=== PATIENT | male | born 1985 | race African-American/Black ===

== ENCOUNTER 2016-06-23 13:02 | Emergency (ER) | payer MEDICAID, OTHER ==
[~2016-06-23 13:02] MED LIST: AMBI10TA; CELE20TA; CELE20TA PO; CELE40TA PO; CITA40TA4 PO; DEPA1TAB3 PO; DEPA500T2 PO; DIVA500T9 PO; HYDR-3713 PO; Inderal PO; LAMI25TA PO; LAMO50TA PO; MAG-OX PO; METH-107 PO; MOTR200T44 PO; PROP1TAB29 PO; RISP2TAB30 PO; TRAZ100T4 PO; TRAZ50TA4 PO; ZOLO100T; ZOLO50TA; ZYRT10CA PO
[2016-06-23] MEDS ORDERED: KETOROLAC 30 MG/ML VIAL (J1885) As Ordered ONE (13:53)
--- NOTE | 2016-06-23 16:06 | EDDOCDS ---
Nurse's Notes [facility] Name: Jonh Napier Age: 30 yrs Sex: Male : 1985 Arrival Date: 06/23/2016 Time: 13:02 Bed PR1 / 25 Private MD: [facility] [place] Diagnosis: Contusion of right hand Presentation: 06/23 13:13 Presenting complaint: Patient states: Punched a wall approximately 2 hours ago. Having jo3 pain to right hand. Adult Sepsis Screening: The patient does not have new or worsening altered mentation. Patient's respiratory rate is less than 22. Systolic blood pressure is greater than 100. Patient has a qSOFA score of 0- Negative Sepsis Screen. Suicide/Homicide risk assessment- the patient denies having any suicidal and/or homicidal ideations and does not present with any other emotional, behavioral or mental health complaints. Status: Patient is not a director service or dependent. Transition of care: patient was not received from another setting of care. 13:13 Acuity: ALLEN Level 4 jo3 13:13 Method Of Arrival: Walkin/Carried/Asstd jo3 Triage Assessment: 13:15 General: Appears in no apparent distress, Behavior is appropriate for age, cooperative. jo3 Pain: Pain currently is 6 out of 10 on a pain scale. HIV screening NA for this visit Offered previously. Neurological: No deficits noted. Derm: Skin is pink, warm & dry. Musculoskeletal: swelling tro dorsal aspect of right hand. Historical: - Allergies: PENICILLINS (Wheezing); - Home Meds: 1. Celexa 40 mg Oral tab 1 tab once daily 2. Depakote ER 500 mg Oral Tb24 1 tab three times a day 3. lamotrigine 40 mg Oral 1 tab once daily 4. unk muscle relaxer - PMHx: Anxiety Disorder; Bipolar disorder; Depression; PTSD; - PSHx: Hernia repair; - Social history: Smoking status: Patient states former smoker of tobacco. No barriers to communication noted, The patient speaks fluent Korean, Speaks appropriately for age. - Family history: Not pertinent. - : The pt / caregiver states he / she is not on anticoagulants. Home medication list is obtained from the patient. - Exposure Risk Screening:: None identified. Screenin:03 Screening information is obtained from the patient. Fall risk: No risks identified. pml Assistance ADL's: requires no assistance with activities of daily living. Abuse/DV Screen: The patient / caregiver reports he/she is: not in a situation that causes fear, pain or injury. Nutritional screening: No deficits noted. Advance Directives: Currently, there is no health care proxy. home support is adequate. Assessment: 13:56 General: Appears in no apparent distress, Behavior is appropriate for age, cooperative. pml Pain: Location: right hand Pain currently is 6 out of 10 on a pain scale. Neurological: Level of Consciousness is awake, alert, Oriented to person, place, time. Cardiovascular: Capillary refill < 3 seconds. Respiratory: Airway is patent Respiratory effort is even, unlabored. GI: Abdomen is non- distended. Derm: Skin is normal. Musculoskeletal: Circulation, motion, and sensation intact Capillary refill < 3 seconds Swelling present in dorsal aspect of proximal phalanx of right middle finger, dorsal aspect of proximal phalanx of right ring finger and dorsum of right hand. 16:03 General: Appears in no apparent distress, Behavior is appropriate for age, cooperative. pml Pain: Location: right hand Pain currently is 3 out of 10 on a pain scale. Neurological: Level of Consciousness is awake, alert, Oriented to person, place, time. Cardiovascular: Capillary refill < 3 seconds. Respiratory: Airway is patent Respiratory effort is even, unlabored. Derm: Skin is normal. Vital Signs: 13:04 BP 145 / 108; Pulse 83; Resp 18 S; Temp 99.7(O); Pulse Ox 98% on R/A; Weight 92.99 kg gr2 (R); Height 5 ft. 9 in. (175.26 cm) (R); Pain 7/10; 14:30 Pain 3/10; pml 15:51 BP 146 / 90; Pulse 72; Resp 16; Temp 98.2(TE); Pulse Ox 97% on R/A; Pain 5/10; sew 13:04 Body Mass Index 30.27 (92.99 kg, 175.26 cm) gr2 Vitals: 13:04 Log In Time: June 23, 2016 at 13:04. gr2 ED Course: 13:04 Patient visited by Genaro Guerra. gr2 13:04 [facility] [place] is Private Physician. gr2 13:04 Patient moved to Waiting gr2 13:05 Patient visited by Genaro Guerra. gr2 13:05 Patient moved to Pre RCE mt4 13:14 Triage Initiated jo3 13:16 Patient visited by Shaylee Mart RN. jo3 13:16 Patient moved to Triage 2 jo3 13:42 [facility] ef1 13:42 Farhad Mccollum MD is Attending Physician. ef1 13:42 Patient visited by Savi London PA-C. ef1 13:56 Patient visited by Olivia Polanco RN. pml 13:56 Patient moved to TR1 pml 14:08 [facility] Payment Agreement was scanned into [employer] and attached to record. lg 14:30 Patient visited by Savi London PA-C. ef1 15:38 Patient visited by Savi London PA-C. ef1 15:38 Patient moved to PR1 / 25 pml 15:39 [facility] is Referral Physician. ef1 15:39 [facility] ef1 15:51 Vaibhav wrap to right hand. Patient has positive distal pulse, brisk capillary refill, and sew positive sensation after application. 15:52 Patient visited by Hazel Avilez. sew 16:03 The patient / caregiver is instructed regarding the plan of care and ED course. Patient pml has correct armband on for positive identification. Bed in low position. Call light in reach. 16:03 No IV's were initiated during this patient's visit. No procedures done that require pml assistance. Administered Medications: 13:55 Drug: ketorolac 60 mg [ketorolac 30 mg/mL (1 mL) injection solution (2 mL)] Route: IM; pml Site: left gluteus; 14:30 Follow up: Pain 3/10 Adult; Response: Pain is decreased pml Order Results: There are currently no results for this order. Outcome: 15:39 Discharge ordered by Provider. ef1 16:03 Discharge Assessment: Patient awake, alert and oriented x 3. No cognitive and/or pml functional deficits noted. Patient verbalized understanding of disposition instructions. patient administered narcotics - no. The following High Risk Discharge criteria are identified: None. Discharged to home ambulatory. Condition: good Condition: stable. Discharge instructions given to patient, Instructed on discharge instructions, follow up and referral plans. medication usage, Rest, Ice, Compression and Elevation. Demonstrated understanding of instructions, medications, Pt was receptive of discharge instructions/ teaching. Prescriptions given X 1. No special radiology studies were completed. Property sent home with patient. 16:05 Patient left the ED. pml Signatures: Rosmery Rojas, Shaylee Blount lg, RN RN jo3 Romy Meeks mt4 Savi London, SRIRAM PARuth ef1 Olivia Polanco RN RN pml Wallace, Sarah sew Raymond, Gainslee gr2 Corrections: (The following items were deleted from the chart) 15:51 15:51 Vaibhav wrap to left hand. Patient has positive distal pulse, brisk capillary refill, sew and positive sensation after application. sew MTDD
--- NOTE | 2016-06-23 16:06 | EDDOCDS ---
Physician Documentation [facility] Name: Jonh Napier Age: 30 yrs Sex: Male : 1985 Arrival Date: 06/23/2016 Time: 13:02 Bed PR Private MD: [facility] Disposition: 06/23/16 15:39 Discharged to Home/Self Care. Impression: Contusion of right hand. - Condition is Stable. - Discharge Instructions: Hand Contusion, [id number]. - Prescriptions for Mobic 7.5 mg Oral Tablet - take 1 tablet by ORAL route once daily take with food; 20 tablet. - Medication Reconciliation, Local Pharmacy Hours, Work Release Form - 2 day form. - Follow up: [facility]; When: 1 - 2 days; Reason: Recheck today's complaints, Continuance of care. Follow up: Emergency Department; Reason: Worsening of conditions. Follow up: [facility]; When: Call to arrange an appointment; Reason: Further diagnostic work-up, Recheck today's complaints, Continuance of care. - Problem is new. - Symptoms have improved. Historical: - Allergies: PENICILLINS (Wheezing); - Home Meds: 1. Celexa 40 mg Oral tab 1 tab once daily 2. Depakote ER 500 mg Oral Tb24 1 tab three times a day 3. lamotrigine 40 mg Oral 1 tab once daily 4. unk muscle relaxer - PMHx: Anxiety Disorder; Bipolar disorder; Depression; PTSD; - PSHx: Hernia repair; - Social history: Smoking status: Patient states former smoker of tobacco. No barriers to communication noted, The patient speaks fluent Luxembourgish, Speaks appropriately for age. - Family history: Not pertinent. - : The pt / caregiver states he / she is not on anticoagulants. Home medication list is obtained from the patient. - Exposure Risk Screening:: None identified. Vital Signs: 06/23 13:04 BP 145 / 108; Pulse 83; Resp 18 S; Temp 99.7(O); Pulse Ox 98% on R/A; Weight 92.99 kg / gr2 205.01 lbs (R); Height 5 ft. 9 in. (175.26 cm) (R); Pain 7/10; 14:30 Pain 3/10; pml 15:51 BP 146 / 90; Pulse 72; Resp 16; Temp 98.2(TE); Pulse Ox 97% on R/A; Pain 5/10; sew 13:04 Body Mass Index 30.27 (92.99 kg, 175.26 cm) gr2 Procedures: 15:40 Fracture care/splinting: Splint applied to right hand using vaibhav wrap, applied by nurse. ef1 Examined by me, post splint application: neurovascular intact, 2+ distal pulses palpable, brisk capillary refill noted, Patient tolerated well. MDM: 13:51 Financial registration complete. lg 13:52 Ice Pack ordered. ef1 13:52 ketorolac 60 mg IM once ordered. ef1 13:52 Hand, Complete Ordered. EDMS 14:08 [facility] Payment Agreement was scanned into [employer] and attached to record. lg 15:38 Vaibhav Wrap ordered. ef1 15:40 Recheck B/P ordered. ef1 Administered Medications: 13:55 Drug: ketorolac 60 mg [ketorolac 30 mg/mL (1 mL) injection solution (2 mL)] Route: IM; pml Site: left gluteus; 14:30 Follow up: Pain 3/10 Adult; Response: Pain is decreased pml Signatures: Dispatcher [employer] EDMS Rosmery Rojas, Beto Reg lg Shaylee Mart RN RN Savi Noonan, PAJbC PAJbC ef1 Olivia Polanco RN RN pml The chart was reviewed and I authenticate all verbal orders and agree with the evaluation and treatment provided.Attachments: 14:08 [facility] Payment Agreement lg MTDD
--- NOTE | 2016-06-23 20:18 | REP ---
Right hand series 06/23/2016 Indication: Trauma Findings: There is moderate soft tissue swelling on the dorsum of the right hand at the level of the distal metacarpals. There is no acute fracture or dislocation within the right hand. Carpal bones are intact Impression: soft tissue swelling on the dorsum of the distal portion of metacarpals without hand fracture or dislocation. Signed by Lyn Gongora MD 06/23/2016 08:10 P
--- NOTE | 2016-06-25 17:06 | EDDOCDS ---
Physician Documentation [facility] Name: Jonh Napier Age: 30 yrs Sex: Male : 1985 Arrival Date: 06/23/2016 Time: 13:02 Bed PR Private MD: [facility] Disposition: 06/23/16 15:39 Discharged to Home/Self Care. Impression: Contusion of right hand. - Condition is Stable. - Discharge Instructions: Hand Contusion, [id number]. - Prescriptions for Mobic 7.5 mg Oral Tablet - take 1 tablet by ORAL route once daily take with food; 20 tablet. - Medication Reconciliation, Local Pharmacy Hours, Work Release Form - 2 day form. - Follow up: [facility]; When: 1 - 2 days; Reason: Recheck today's complaints, Continuance of care. Follow up: Emergency Department; Reason: Worsening of conditions. Follow up: [facility]; When: Call to arrange an appointment; Reason: Further diagnostic work-up, Recheck today's complaints, Continuance of care. - Problem is new. - Symptoms have improved. Historical: - Allergies: PENICILLINS (Wheezing); - Home Meds: 1. Celexa 40 mg Oral tab 1 tab once daily 2. Depakote ER 500 mg Oral Tb24 1 tab three times a day 3. lamotrigine 40 mg Oral 1 tab once daily 4. unk muscle relaxer - PMHx: Anxiety Disorder; Bipolar disorder; Depression; PTSD; - PSHx: Hernia repair; - Social history: Smoking status: Patient states former smoker of tobacco. No barriers to communication noted, The patient speaks fluent Indonesian, Speaks appropriately for age. - Family history: Not pertinent. - : The pt / caregiver states he / she is not on anticoagulants. Home medication list is obtained from the patient. - Exposure Risk Screening:: None identified. Vital Signs: 06/23 13:04 BP 145 / 108; Pulse 83; Resp 18 S; Temp 99.7(O); Pulse Ox 98% on R/A; Weight 92.99 kg / gr2 205.01 lbs (R); Height 5 ft. 9 in. (175.26 cm) (R); Pain 7/10; 14:30 Pain 3/10; pml 15:51 BP 146 / 90; Pulse 72; Resp 16; Temp 98.2(TE); Pulse Ox 97% on R/A; Pain 5/10; sew 13:04 Body Mass Index 30.27 (92.99 kg, 175.26 cm) gr2 Procedures: 15:40 Fracture care/splinting: Splint applied to right hand using vaibhav wrap, applied by nurse. ef1 Examined by me, post splint application: neurovascular intact, 2+ distal pulses palpable, brisk capillary refill noted, Patient tolerated well. MDM: 13:51 Financial registration complete. lg 13:52 Ice Pack ordered. ef1 13:52 ketorolac 60 mg IM once ordered. ef1 13:52 Hand, Complete Ordered. EDMS 14:08 [facility] Payment Agreement was scanned into [employer] and attached to record. lg 15:38 Vaibhav Wrap ordered. ef1 15:40 Recheck B/P ordered. ef1 21:55 T-Sheet-- Draft Copy was scanned into [employer] and attached to record. klr Administered Medications: 13:55 Drug: ketorolac 60 mg [ketorolac 30 mg/mL (1 mL) injection solution (2 mL)] Route: IM; pml Site: left gluteus; 14:30 Follow up: Pain 3/10 Adult; Response: Pain is decreased pml Signatures: Dispatcher [employer] EDAZ Rosmery Rojas Reg Reg lg Shaylee Mart RN RN anup3 Savi London, PAJbC PARuth ef1 Olivia Polanco RN RN pml Redder, Kathie klr The chart was reviewed and I authenticate all verbal orders and agree with the evaluation and treatment provided.Attachments: 14:08 [facility] Payment Agreement lg 21:55 T-Sheet-- Draft Copy klr Chart Complete MTDD
--- NOTE | 2016-06-25 17:06 | EDDOCDS ---
Physician Documentation [facility] Name: Jonh Napier Age: 30 yrs Sex: Male : 1985 Arrival Date: 06/23/2016 Time: 13:02 Bed PR Private MD: [facility] Disposition: 06/23/16 15:39 Discharged to Home/Self Care. Impression: Contusion of right hand. - Condition is Stable. - Discharge Instructions: Hand Contusion, [id number]. - Prescriptions for Mobic 7.5 mg Oral Tablet - take 1 tablet by ORAL route once daily take with food; 20 tablet. - Medication Reconciliation, Local Pharmacy Hours, Work Release Form - 2 day form. - Follow up: [facility]; When: 1 - 2 days; Reason: Recheck today's complaints, Continuance of care. Follow up: Emergency Department; Reason: Worsening of conditions. Follow up: [facility]; When: Call to arrange an appointment; Reason: Further diagnostic work-up, Recheck today's complaints, Continuance of care. - Problem is new. - Symptoms have improved. Historical: - Allergies: PENICILLINS (Wheezing); - Home Meds: 1. Celexa 40 mg Oral tab 1 tab once daily 2. Depakote ER 500 mg Oral Tb24 1 tab three times a day 3. lamotrigine 40 mg Oral 1 tab once daily 4. unk muscle relaxer - PMHx: Anxiety Disorder; Bipolar disorder; Depression; PTSD; - PSHx: Hernia repair; - Social history: Smoking status: Patient states former smoker of tobacco. No barriers to communication noted, The patient speaks fluent Frisian, Speaks appropriately for age. - Family history: Not pertinent. - : The pt / caregiver states he / she is not on anticoagulants. Home medication list is obtained from the patient. - Exposure Risk Screening:: None identified. Vital Signs: 06/23 13:04 BP 145 / 108; Pulse 83; Resp 18 S; Temp 99.7(O); Pulse Ox 98% on R/A; Weight 92.99 kg / gr2 205.01 lbs (R); Height 5 ft. 9 in. (175.26 cm) (R); Pain 7/10; 14:30 Pain 3/10; pml 15:51 BP 146 / 90; Pulse 72; Resp 16; Temp 98.2(TE); Pulse Ox 97% on R/A; Pain 5/10; sew 13:04 Body Mass Index 30.27 (92.99 kg, 175.26 cm) gr2 Procedures: 15:40 Fracture care/splinting: Splint applied to right hand using vaibhav wrap, applied by nurse. ef1 Examined by me, post splint application: neurovascular intact, 2+ distal pulses palpable, brisk capillary refill noted, Patient tolerated well. MDM: 13:51 Financial registration complete. lg 13:52 Ice Pack ordered. ef1 13:52 ketorolac 60 mg IM once ordered. ef1 13:52 Hand, Complete Ordered. EDMS 14:08 [facility] Payment Agreement was scanned into [employer] and attached to record. lg 15:38 Vaibhav Wrap ordered. ef1 15:40 Recheck B/P ordered. ef1 21:55 T-Sheet-- Draft Copy was scanned into [employer] and attached to record. klr Administered Medications: 13:55 Drug: ketorolac 60 mg [ketorolac 30 mg/mL (1 mL) injection solution (2 mL)] Route: IM; pml Site: left gluteus; 14:30 Follow up: Pain 3/10 Adult; Response: Pain is decreased pml Signatures: Dispatcher [employer] EDWY Rosmery Rojas Reg Reg lg Shaylee Mart RN RN anup3 Savi London, PAJbC PARuth ef1 Olivia Polanco RN RN pml Redder, Kathie klr The chart was reviewed and I authenticate all verbal orders and agree with the evaluation and treatment provided.Attachments: 14:08 [facility] Payment Agreement lg 21:55 T-Sheet-- Draft Copy klr Chart Complete MTDD
--- NOTE | 2016-06-25 17:06 | EDDOCDS ---
Nurse's Notes [facility] Name: Jonh Napier Age: 30 yrs Sex: Male : 1985 Arrival Date: 06/23/2016 Time: 13:02 Bed PR1 / 25 Private MD: [facility] [place] Diagnosis: Contusion of right hand Presentation: 06/23 13:13 Presenting complaint: Patient states: Punched a wall approximately 2 hours ago. Having jo3 pain to right hand. Adult Sepsis Screening: The patient does not have new or worsening altered mentation. Patient's respiratory rate is less than 22. Systolic blood pressure is greater than 100. Patient has a qSOFA score of 0- Negative Sepsis Screen. Suicide/Homicide risk assessment- the patient denies having any suicidal and/or homicidal ideations and does not present with any other emotional, behavioral or mental health complaints. Status: Patient is not a service desk specialist or dependent. Transition of care: patient was not received from another setting of care. 13:13 Acuity: ALLEN Level 4 jo3 13:13 Method Of Arrival: Walkin/Carried/Asstd jo3 Triage Assessment: 13:15 General: Appears in no apparent distress, Behavior is appropriate for age, cooperative. jo3 Pain: Pain currently is 6 out of 10 on a pain scale. HIV screening NA for this visit Offered previously. Neurological: No deficits noted. Derm: Skin is pink, warm & dry. Musculoskeletal: swelling tro dorsal aspect of right hand. Historical: - Allergies: PENICILLINS (Wheezing); - Home Meds: 1. Celexa 40 mg Oral tab 1 tab once daily 2. Depakote ER 500 mg Oral Tb24 1 tab three times a day 3. lamotrigine 40 mg Oral 1 tab once daily 4. unk muscle relaxer - PMHx: Anxiety Disorder; Bipolar disorder; Depression; PTSD; - PSHx: Hernia repair; - Social history: Smoking status: Patient states former smoker of tobacco. No barriers to communication noted, The patient speaks fluent Armenian, Speaks appropriately for age. - Family history: Not pertinent. - : The pt / caregiver states he / she is not on anticoagulants. Home medication list is obtained from the patient. - Exposure Risk Screening:: None identified. Screenin:03 Screening information is obtained from the patient. Fall risk: No risks identified. pml Assistance ADL's: requires no assistance with activities of daily living. Abuse/DV Screen: The patient / caregiver reports he/she is: not in a situation that causes fear, pain or injury. Nutritional screening: No deficits noted. Advance Directives: Currently, there is no health care proxy. home support is adequate. Assessment: 13:56 General: Appears in no apparent distress, Behavior is appropriate for age, cooperative. pml Pain: Location: right hand Pain currently is 6 out of 10 on a pain scale. Neurological: Level of Consciousness is awake, alert, Oriented to person, place, time. Cardiovascular: Capillary refill < 3 seconds. Respiratory: Airway is patent Respiratory effort is even, unlabored. GI: Abdomen is non- distended. Derm: Skin is normal. Musculoskeletal: Circulation, motion, and sensation intact Capillary refill < 3 seconds Swelling present in dorsal aspect of proximal phalanx of right middle finger, dorsal aspect of proximal phalanx of right ring finger and dorsum of right hand. 16:03 General: Appears in no apparent distress, Behavior is appropriate for age, cooperative. pml Pain: Location: right hand Pain currently is 3 out of 10 on a pain scale. Neurological: Level of Consciousness is awake, alert, Oriented to person, place, time. Cardiovascular: Capillary refill < 3 seconds. Respiratory: Airway is patent Respiratory effort is even, unlabored. Derm: Skin is normal. Vital Signs: 13:04 BP 145 / 108; Pulse 83; Resp 18 S; Temp 99.7(O); Pulse Ox 98% on R/A; Weight 92.99 kg gr2 (R); Height 5 ft. 9 in. (175.26 cm) (R); Pain 7/10; 14:30 Pain 3/10; pml 15:51 BP 146 / 90; Pulse 72; Resp 16; Temp 98.2(TE); Pulse Ox 97% on R/A; Pain 5/10; sew 13:04 Body Mass Index 30.27 (92.99 kg, 175.26 cm) gr2 Vitals: 13:04 Log In Time: June 23, 2016 at 13:04. gr2 ED Course: 13:04 Patient visited by Genaro Guerra. gr2 13:04 [facility] [place] is Private Physician. gr2 13:04 Patient moved to Waiting gr2 13:05 Patient visited by Genaro Guerra. gr2 13:05 Patient moved to Pre RCE mt4 13:14 Triage Initiated jo3 13:16 Patient visited by Shaylee Mart RN. jo3 13:16 Patient moved to Triage 2 jo3 13:42 [facility] London [facility]C [facility] ef1 13:42 Farhad Mccollum MD is Attending Physician. ef1 13:42 Patient visited by Savi London PA-C. ef1 13:56 Patient visited by Olivia Polanco RN. pml 13:56 Patient moved to TR1 pml 14:08 REPLACED BY [facility] Payment Agreement was scanned into [employer] and attached to record. lg 14:30 Patient visited by Savi London PA-C. ef1 15:38 Patient visited by Savi London PA-C. ef1 15:38 Patient moved to PR1 / 25 pml 15:39 [facility] is Referral Physician. ef1 15:39 [facility] ef1 15:51 Vaibhav wrap to right hand. Patient has positive distal pulse, brisk capillary refill, and sew positive sensation after application. 15:52 Patient visited by Hazel Avilez. sew 16:03 The patient / caregiver is instructed regarding the plan of care and ED course. Patient pml has correct armband on for positive identification. Bed in low position. Call light in reach. 16:03 No IV's were initiated during this patient's visit. No procedures done that require pml assistance. 20:57 Hand, Complete Returned. EDMS 21:55 T-Sheet-- Draft Copy was scanned into [employer] and attached to record. klr Administered Medications: 13:55 Drug: ketorolac 60 mg [ketorolac 30 mg/mL (1 mL) injection solution (2 mL)] Route: IM; pml Site: left gluteus; 14:30 Follow up: Pain 3/10 Adult; Response: Pain is decreased pml Order Results: Radiology Order: Hand, Complete Test: Hand, Complete REASON FOR EXAMINATION: Trauma; Right hand series 06/23/2016; ; Indication: Trauma; ; Findings: There is moderate soft tissue swelling on the dorsum of the right hand; at the level of the distal metacarpals. There is no acute fracture or; dislocation within the right hand. Carpal bones are intact; ; Impression: soft tissue swelling on the dorsum of the distal portion of; metacarpals without hand fracture or dislocation.; ; ; Signed by; Lyn Gongora MD 06/23/2016 08:10 P; Outcome: 15:39 Discharge ordered by Provider. ef1 16:03 Discharge Assessment: Patient awake, alert and oriented x 3. No cognitive and/or pml functional deficits noted. Patient verbalized understanding of disposition instructions. patient administered narcotics - no. The following High Risk Discharge criteria are identified: None. Discharged to home ambulatory. Condition: good Condition: stable. Discharge instructions given to patient, Instructed on discharge instructions, follow up and referral plans. medication usage, Rest, Ice, Compression and Elevation. Demonstrated understanding of instructions, medications, Pt was receptive of discharge instructions/ teaching. Prescriptions given X 1. No special radiology studies were completed. Property sent home with patient. 16:05 Patient left the ED. pml Signatures: Dispatcher [employer] EDRosmery Maldonado, Shaylee Blount lg, RN RN jo3 Romy Meeks mt4 Savi London, PA-Laney PA-Laney ef1 Olivia Polanco RN RN pml Wallace, Sarah sew Raymond, Gainslee 2 Shea Atwood Corrections: (The following items were deleted from the chart) 15:51 15:51 Vaibhav wrap to left hand. Patient has positive distal pulse, brisk capillary refill, sew and positive sensation after application. sew Chart Complete MTDD
== END 2016-06-23 16:05 | disposition home or self-care (01) ==
LOC: M ED 13:02
DX: S60.221A Contusion of right hand, initial encounter (principal); F43.12 Post-traumatic stress disorder, chronic; F31.9 Bipolar disorder, unspecified; Z87.891 Personal history of nicotine dependence; Z88.0 Allergy status to penicillin; Z79.899 Other long term (current) drug therapy; X58.XXXA Exposure to other specified factors, initial encounter; Y92.019 Unspecified place in single-family (private) house as the place of occurrence of the external cause; Y93.89 Activity, other specified; Y99.9 Unspecified external cause status
CPT/HCPCS: 73130; 96372; 99284; J1885

== ENCOUNTER 2016-07-05 13:10 | Emergency (ER) | payer OTHER ==
--- NOTE | 2016-07-05 14:09 | EDDOCDS ---
Physician Documentation [facility] Name: Jonh Napier Age: 30 yrs Sex: Male : 1985 Arrival Date: 07/05/2016 Time: 13:10 Bed TR7 Private MD: [facility] Disposition: 07/05/16 14:01 Discharged to Home/Self Care. Impression: Pain in left knee. - Condition is Stable. - Discharge Instructions: Knee Pain. - Medication Reconciliation, Local Pharmacy Hours form. - Follow up: Orthopaedics, [facility]; When: Call to arrange an appointment; Reason: Further diagnostic work-up, Recheck today's complaints, Continuance of care. - Problem is new. - Symptoms are unchanged. Historical: - Allergies: PENICILLINS (Wheezing); - Home Meds: 1. Celexa 40 mg Oral tab 1 tab once daily 2. Depakote ER 500 mg Oral Tb24 1 tab three times a day 3. unk muscle relaxer 4. lamotrigine 40 mg Oral 1 tab once daily - PMHx: Anxiety Disorder; Bipolar disorder; Depression; PTSD; - PSHx: Hernia repair; - Social history: Smoking status: Patient states was never smoker of tobacco. No barriers to communication noted, The patient speaks fluent Hebrew. - : The pt / caregiver states he / she is not on anticoagulants. Home medication list is obtained from the patient. - Exposure Risk Screening:: None identified. Vital Signs: 07/05 13:11 BP 161 / 98; Pulse 77; Resp 18; Temp 97.8(O); Pulse Ox 98% on R/A; Weight 90.72 kg / ct3 200 lbs (R); Height 5 ft. 9 in. (175.26 cm) (R); Pain 7/10; 14:06 BP 141 / 102 LA Sitting (auto/lg); jjr 13:11 Body Mass Index 29.53 (90.72 kg, 175.26 cm) ct3 14:06 pt reports hx of high blood pressure readings jjr Signatures: Bailey Guerra RN RN jjr Israel Gore PA PA btw Smith, MalloryRN RN ms18 MTDD
--- NOTE | 2016-07-05 14:09 | EDDOCDS ---
Nurse's Notes [facility] Name: Jonh Napier Age: 30 yrs Sex: Male : 1985 Arrival Date: 07/05/2016 Time: 13:10 Bed TR7 Private MD: [facility] [place] Diagnosis: Pain in left knee Presentation: 07/05 13:22 Presenting complaint: Patient states: that he woke up and had a lot of L knee pain. Pt ms18 denies injury. Adult Sepsis Screening: The patient does not have new or worsening altered mentation. Patient's respiratory rate is less than 22. Systolic blood pressure is greater than 100. Patient has a qSOFA score of 0- Negative Sepsis Screen. Suicide/Homicide risk assessment- the patient denies having any suicidal and/or homicidal ideations and does not present with any other emotional, behavioral or mental health complaints. Status: Patient is not a customer service sales consultant or dependent. Transition of care: patient was not received from another setting of care. 13:22 Acuity: ALLEN Level 4 ms18 13:22 Method Of Arrival: Walkin/Carried/Asstd ms18 Triage Assessment: 13:24 General: Appears in no apparent distress, comfortable, Behavior is appropriate for age, ms18 cooperative. Pain: Location: lateral aspect of left knee Pain currently is 7 out of 10 on a pain scale. HIV screening NA for this visit Offered previously. Neurological: No deficits noted. Respiratory: No deficits noted. Derm: Skin is pink, warm & dry. normal. Musculoskeletal: Reports pain in lateral aspect of left knee. Historical: - Allergies: PENICILLINS (Wheezing); - Home Meds: 1. Celexa 40 mg Oral tab 1 tab once daily 2. Depakote ER 500 mg Oral Tb24 1 tab three times a day 3. unk muscle relaxer 4. lamotrigine 40 mg Oral 1 tab once daily - PMHx: Anxiety Disorder; Bipolar disorder; Depression; PTSD; - PSHx: Hernia repair; - Social history: Smoking status: Patient states was never smoker of tobacco. No barriers to communication noted, The patient speaks fluent Martiniquais. - : The pt / caregiver states he / she is not on anticoagulants. Home medication list is obtained from the patient. - Exposure Risk Screening:: None identified. Screenin:07 Screening information is obtained from the patient. Fall risk: No risks identified. jjr Assistance ADL's: requires no assistance with activities of daily living. Abuse/DV Screen: The patient / caregiver reports he/she is: not in a situation that causes fear, pain or injury. Nutritional screening: No deficits noted. Advance Directives: There is no active DNR order. home support is adequate. Assessment: 14:07 General: Appears in no apparent distress, well nourished, well groomed, Behavior is jjr appropriate for age. Pain: Location: lateral aspect of left knee. Vital Signs: 13:11 BP 161 / 98; Pulse 77; Resp 18; Temp 97.8(O); Pulse Ox 98% on R/A; Weight 90.72 kg (R); ct3 Height 5 ft. 9 in. (175.26 cm) (R); Pain 7/10; 14:06 BP 141 / 102 LA Sitting (auto/lg); jjr 13:11 Body Mass Index 29.53 (90.72 kg, 175.26 cm) ct3 14:06 pt reports hx of high blood pressure readings jjr Vitals: 13:11 Log In Time: July 05, 2016 at 13:09. ct3 ED Course: 13:11 Patient visited by Sandie Cano PCA. ct3 13:11 [facility] is Private Physician. ct3 13:11 Patient moved to Waiting ct3 13:23 Triage Initiated ms18 13:32 Patient moved to Pre RCE jjr 13:39 Patient moved to Triage 2 ttb 13:40 [facility]. btw 13:40 Leon Tavares MD is Attending Physician. btw 13:49 Patient visited by Israel Gore PA. btw 14:01 [facility] btw 14:06 Patient moved to TR7 ttb 14:07 The patient / caregiver is instructed regarding the plan of care and ED course. jjr 14:07 No IV's were initiated during this patient's visit. No procedures done that require jjr assistance. Order Results: There are currently no results for this order. Outcome: 14:01 Discharge ordered by Provider. btw 14:07 Discharge Assessment: patient administered narcotics - no. The following High Risk jjr Discharge criteria are identified: None. Discharged to home ambulatory. Condition: stable. Discharge instructions given to patient, Instructed on discharge instructions, follow up and referral plans. Demonstrated understanding of instructions. No special radiology studies were completed. Property sent home with patient. 14:08 Patient left the ED. jjr Signatures: Bailey Guerra, RN RN jjr Israel Gore PA PA btw Sandie Cano, COIL FORMER COIL FORMER ct3 Chantal Milligan RN RN ttCarleen Ramirez RN RN ms18 MTDD
--- NOTE | 2016-07-07 15:08 | EDDOCDS ---
Nurse's Notes [facility] Name: Jonh Napier Age: 30 yrs Sex: Male : 1985 Arrival Date: 07/05/2016 Time: 13:10 Bed TR7 Private MD: [facility] [place] Diagnosis: Pain in left knee Presentation: 07/05 13:22 Presenting complaint: Patient states: that he woke up and had a lot of L knee pain. Pt ms18 denies injury. Adult Sepsis Screening: The patient does not have new or worsening altered mentation. Patient's respiratory rate is less than 22. Systolic blood pressure is greater than 100. Patient has a qSOFA score of 0- Negative Sepsis Screen. Suicide/Homicide risk assessment- the patient denies having any suicidal and/or homicidal ideations and does not present with any other emotional, behavioral or mental health complaints. Status: Patient is not a child and family services specialist or dependent. Transition of care: patient was not received from another setting of care. 13:22 Acuity: ALLEN Level 4 ms18 13:22 Method Of Arrival: Walkin/Carried/Asstd ms18 Triage Assessment: 13:24 General: Appears in no apparent distress, comfortable, Behavior is appropriate for age, ms18 cooperative. Pain: Location: lateral aspect of left knee Pain currently is 7 out of 10 on a pain scale. HIV screening NA for this visit Offered previously. Neurological: No deficits noted. Respiratory: No deficits noted. Derm: Skin is pink, warm & dry. normal. Musculoskeletal: Reports pain in lateral aspect of left knee. Historical: - Allergies: PENICILLINS (Wheezing); - Home Meds: 1. Celexa 40 mg Oral tab 1 tab once daily 2. Depakote ER 500 mg Oral Tb24 1 tab three times a day 3. unk muscle relaxer 4. lamotrigine 40 mg Oral 1 tab once daily - PMHx: Anxiety Disorder; Bipolar disorder; Depression; PTSD; - PSHx: Hernia repair; - Social history: Smoking status: Patient states was never smoker of tobacco. No barriers to communication noted, The patient speaks fluent Prydeinig. - : The pt / caregiver states he / she is not on anticoagulants. Home medication list is obtained from the patient. - Exposure Risk Screening:: None identified. Screenin:07 Screening information is obtained from the patient. Fall risk: No risks identified. jjr Assistance ADL's: requires no assistance with activities of daily living. Abuse/DV Screen: The patient / caregiver reports he/she is: not in a situation that causes fear, pain or injury. Nutritional screening: No deficits noted. Advance Directives: There is no active DNR order. home support is adequate. Assessment: 14:07 General: Appears in no apparent distress, well nourished, well groomed, Behavior is jjr appropriate for age. Pain: Location: lateral aspect of left knee. Vital Signs: 13:11 BP 161 / 98; Pulse 77; Resp 18; Temp 97.8(O); Pulse Ox 98% on R/A; Weight 90.72 kg (R); ct3 Height 5 ft. 9 in. (175.26 cm) (R); Pain 7/10; 14:06 BP 141 / 102 LA Sitting (auto/lg); jjr 13:11 Body Mass Index 29.53 (90.72 kg, 175.26 cm) ct3 14:06 pt reports hx of high blood pressure readings jjr Vitals: 13:11 Log In Time: July 05, 2016 at 13:09. ct3 ED Course: 13:11 Patient visited by Sandie Cano PCA. ct3 13:11 [facility] is Private Physician. ct3 13:11 Patient moved to Waiting ct3 13:23 Triage Initiated ms18 13:32 Patient moved to Pre RCE jjr 13:39 Patient moved to Triage 2 ttb 13:40 Israel Gore PA is PHCP. btw 13:40 Leon Tavares MD is Attending Physician. btw 13:49 Patient visited by Israel Gore PA. btw 14:01 [facility] btw 14:06 Patient moved to TR7 ttb 14:07 The patient / caregiver is instructed regarding the plan of care and ED course. jjr 14:07 No IV's were initiated during this patient's visit. No procedures done that require jjr assistance. 14:20 [facility] Payment Agreement was scanned into [employer] and attached to record. mm15 15:00 T-Sheet-- Draft Copy was scanned into [employer] and attached to record. gb Order Results: There are currently no results for this order. Outcome: 14:01 Discharge ordered by Provider. btw 14:07 Discharge Assessment: patient administered narcotics - no. The following High Risk jjr Discharge criteria are identified: None. Discharged to home ambulatory. Condition: stable. Discharge instructions given to patient, Instructed on discharge instructions, follow up and referral plans. Demonstrated understanding of instructions. No special radiology studies were completed. Property sent home with patient. 14:08 Patient left the ED. jjr Signatures: Renata Vaughn, Reg Reg gb Bailey Guerra, RN RN jjr Israel Gore PA PA btw Sandie Cano, WET PROCESS MILLER WET PROCESS MILLER ct3 Chantal Milligan, RN RN ttb Juliana Gutierrez mm15 Carleen Means,RN RN ms18 Chart Complete MTDGilmar
--- NOTE | 2016-07-07 15:08 | EDDOCDS ---
Physician Documentation [facility] Name: Jonh Napier Age: 30 yrs Sex: Male : 1985 Arrival Date: 07/05/2016 Time: 13:10 Bed TR7 Private MD: [facility] Disposition: 07/05/16 14:01 Discharged to Home/Self Care. Impression: Pain in left knee. - Condition is Stable. - Discharge Instructions: Knee Pain. - Medication Reconciliation, Local Pharmacy Hours form. - Follow up: Orthopaedics, [facility]; When: Call to arrange an appointment; Reason: Further diagnostic work-up, Recheck today's complaints, Continuance of care. - Problem is new. - Symptoms are unchanged. Historical: - Allergies: PENICILLINS (Wheezing); - Home Meds: 1. Celexa 40 mg Oral tab 1 tab once daily 2. Depakote ER 500 mg Oral Tb24 1 tab three times a day 3. unk muscle relaxer 4. lamotrigine 40 mg Oral 1 tab once daily - PMHx: Anxiety Disorder; Bipolar disorder; Depression; PTSD; - PSHx: Hernia repair; - Social history: Smoking status: Patient states was never smoker of tobacco. No barriers to communication noted, The patient speaks fluent Lao. - : The pt / caregiver states he / she is not on anticoagulants. Home medication list is obtained from the patient. - Exposure Risk Screening:: None identified. Vital Signs: 07/05 13:11 BP 161 / 98; Pulse 77; Resp 18; Temp 97.8(O); Pulse Ox 98% on R/A; Weight 90.72 kg / ct3 200 lbs (R); Height 5 ft. 9 in. (175.26 cm) (R); Pain 7/10; 14:06 BP 141 / 102 LA Sitting (auto/lg); jjr 13:11 Body Mass Index 29.53 (90.72 kg, 175.26 cm) ct3 14:06 pt reports hx of high blood pressure readings jjr MDM: 14:20 [facility] Payment Agreement was scanned into [employer] and attached to record. mm15 14:20 Financial registration complete. mm15 15:00 T-Sheet-- Draft Copy was scanned into [employer] and attached to record. gb Signatures: Renata Vaughn, Reg Reg gb Bailey Guerra, RN RN jjr Israel Gore PA PA btw McGrath, Marlynn mm15 Carleen Means RN RN ms18 The chart was reviewed and I authenticate all verbal orders and agree with the evaluation and treatment provided.Attachments: 14:20 [facility] Payment Agreement mm15 15:00 T-Sheet-- Draft Copy gb Chart Complete MTDD
--- NOTE | 2016-07-07 15:08 | EDDOCDS ---
Physician Documentation [facility] Name: Jonh Napier Age: 30 yrs Sex: Male : 1985 Arrival Date: 07/05/2016 Time: 13:10 Bed TR7 Private MD: [facility] Disposition: 07/05/16 14:01 Discharged to Home/Self Care. Impression: Pain in left knee. - Condition is Stable. - Discharge Instructions: Knee Pain. - Medication Reconciliation, Local Pharmacy Hours form. - Follow up: Orthopaedics, [facility]; When: Call to arrange an appointment; Reason: Further diagnostic work-up, Recheck today's complaints, Continuance of care. - Problem is new. - Symptoms are unchanged. Historical: - Allergies: PENICILLINS (Wheezing); - Home Meds: 1. Celexa 40 mg Oral tab 1 tab once daily 2. Depakote ER 500 mg Oral Tb24 1 tab three times a day 3. unk muscle relaxer 4. lamotrigine 40 mg Oral 1 tab once daily - PMHx: Anxiety Disorder; Bipolar disorder; Depression; PTSD; - PSHx: Hernia repair; - Social history: Smoking status: Patient states was never smoker of tobacco. No barriers to communication noted, The patient speaks fluent Italian. - : The pt / caregiver states he / she is not on anticoagulants. Home medication list is obtained from the patient. - Exposure Risk Screening:: None identified. Vital Signs: 07/05 13:11 BP 161 / 98; Pulse 77; Resp 18; Temp 97.8(O); Pulse Ox 98% on R/A; Weight 90.72 kg / ct3 200 lbs (R); Height 5 ft. 9 in. (175.26 cm) (R); Pain 7/10; 14:06 BP 141 / 102 LA Sitting (auto/lg); jjr 13:11 Body Mass Index 29.53 (90.72 kg, 175.26 cm) ct3 14:06 pt reports hx of high blood pressure readings jjr MDM: 14:20 [facility] Payment Agreement was scanned into [employer] and attached to record. mm15 14:20 Financial registration complete. mm15 15:00 T-Sheet-- Draft Copy was scanned into [employer] and attached to record. gb Signatures: Renata Vaughn, Reg Reg gb Bailey Guerra, RN RN jjr Israel Gore PA PA btw McGrath, Marlynn mm15 Carleen Means RN RN ms18 The chart was reviewed and I authenticate all verbal orders and agree with the evaluation and treatment provided.Attachments: 14:20 [facility] Payment Agreement mm15 15:00 T-Sheet-- Draft Copy gb Chart Complete MTDD
== END 2016-07-05 14:08 | disposition home or self-care (01) ==
LOC: M ED 13:10
DX: M25.562 Pain in left knee (principal); F31.9 Bipolar disorder, unspecified; F43.10 Post-traumatic stress disorder, unspecified; Z79.899 Other long term (current) drug therapy; Z88.0 Allergy status to penicillin

== ENCOUNTER 2016-10-22 18:10 | Emergency (ER) | payer OTHER, SELFPAY ==
[~2016-10-22] VITALS: Ht 175.3 cm; Wt 83.9 kg
[2016-10-22 18:11] VITALS: BP 164/106
[2016-10-22] MEDS ORDERED: BACL10TA2 PO (18:31)
[2016-10-22] MEDS ORDERED: LIDOCAINE 1% SDV 5 ML VIAL SC ONE (20:45)
[2016-10-22] MEDS ORDERED: DERMABOND TOPICAL SKIN ADHESIVE TOP ONE (20:45)
== END 2016-10-22 21:39 | disposition home or self-care (01) ==
LOC: M ED 19:17
DX: S61.210A Laceration without foreign body of right index finger without damage to nail, initial encounter (principal); S61.212A Laceration without foreign body of right middle finger without damage to nail, initial encounter; W25.XXXA Contact with sharp glass, initial encounter; Y92.099 Unspecified place in other non-institutional residence as the place of occurrence of the external cause; Y93.89 Activity, other specified; Y99.8 Other external cause status; F31.9 Bipolar disorder, unspecified; J45.909 Unspecified asthma, uncomplicated; Z88.0 Allergy status to penicillin; Z91.013 Allergy to seafood; Z79.899 Other long term (current) drug therapy

== ENCOUNTER 2016-10-24 17:50 | Emergency (ER) | payer OTHER, SELFPAY ==
[~2016-10-24] VITALS: Ht 172.7 cm; Wt 83.9 kg
[~2016-10-24 17:50] MED LIST changes: +BACL10TA2 PO
[2016-10-24 19:27] VITALS: BP 106/102
== END 2016-10-24 19:38 | disposition home or self-care (01) ==
LOC: M ED 19:09
DX: S61.210D Laceration without foreign body of right index finger without damage to nail, subsequent encounter (principal); W25.XXXD Contact with sharp glass, subsequent encounter; Z88.0 Allergy status to penicillin; Z91.013 Allergy to seafood; Z79.899 Other long term (current) drug therapy

== ENCOUNTER 2017-03-14 14:34 | Inpatient (IN) | payer OTHER, SELFPAY ==
[~2017-03-14] VITALS: Ht 175.3 cm; Wt 81.8 kg
[~2017-03-14 14:34] MED LIST changes: +ALBU17IN INH; -METH-107 PO; +METH1TAB40 PO; -RISP2TAB30 PO; +RISP2TAB32 PO; +TRAZ-136 PO; -TRAZ100T4 PO; +TRAZ50TA11 PO; -TRAZ50TA4 PO
[2017-03-14] MEDS ORDERED: LISI-538 PO (15:06)
[2017-03-14] MEDS ORDERED: PRAZ1CAP PO (15:06)
[2017-03-14 16:10] LABS: MEAN CORPUSCULAR HEMOGLOBIN 28.9 pg (27.0-33.0); MEAN CORPUSCULAR HGB CONC 34.6 g/dl (32.0-36.5); MEAN CORPUSCULAR VOLUME 83.6 fl (80.0-96.0); RED CELL DISTRIBUTION WIDTH 11.7 % (11.5-14.5); WHITE BLOOD COUNT 4.9 10^3/uL (4.0-10.0)
[2017-03-14 16:54] LABS: ALBUMIN/GLOBULIN RATIO 1.33 (1.00-1.93); ALKALINE PHOSPHATASE 50 U/L (45-117); ALT/SGPT 21 U/L (12-78); ANION GAP 8 MEQ/L (8-16); AST/SGOT 11 U/L (15-37); BILIRUBIN,DIRECT 0.1 MG/DL (0.0-0.2); BILIRUBIN,TOTAL 0.4 MG/DL (0.2-1.0); BLOOD UREA NITROGEN 6 MG/DL (7-18); CALCIUM LEVEL 9.5 MG/DL (8.5-10.1); CARBON DIOXIDE LEVEL 29 MEQ/L (21-32); CHLORIDE LEVEL 103 MEQ/L (98-107); CREATININE FOR GFR 1.05 MG/DL (0.70-1.30); GLOMERULAR FILTRATION RATE > 60.0 (>60); GLUCOSE, FASTING 89 MG/DL (70-105); SODIUM LEVEL 140 MEQ/L (136-145)
[2017-03-14 16:54] LABS: METHADONE URINE NEGATIVE (NEGATIVE)
[2017-03-14] MEDS ORDERED: LABETALOL 100 MG TAB PO ONE (17:30)
[2017-03-14] MEDS ORDERED: PRAZOSIN 1 MG CAP PO ONE (21:00)
[2017-03-14] MEDS ORDERED: DIVALPROEX 250MG *ER* TAB PO ONE (21:00)
[2017-03-14] MEDS ORDERED: ACETAMINOPHEN 325 MG TAB PO ONE (21:00)
[2017-03-14] MEDS ORDERED: DIVALPROEX 500 MG TAB PO SCH (21:00)
[2017-03-14] MEDS: PRAZOSIN 1 MG CAP PO SCH (21:00)
[2017-03-14] MEDS ORDERED: MOM 30ML SUSPENSION UDC PO PRN (23:30)
[2017-03-14] MEDS ORDERED: LISI10TA4 PO (23:45)
[2017-03-14] MEDS ORDERED: ALBUTEROL 90 MCG/ACT 8GM HFA INHALER INH PRN (23:45)
[2017-03-14] MEDS ORDERED: VENTAER INH (23:45)
[2017-03-15] MEDS: CitaloPRAM (CeleXA) 20 MG TAB PO SCH ×2 (01:58→20:12)
[2017-03-15] MEDS: BACLOFEN 10 MG TAB PO SCH ×4 (01:58→20:12)
[2017-03-15] MEDS: PRAZOSIN 1 MG CAP PO SCH ×2 (01:59→20:15)
[2017-03-15 07:06] VITALS: BP 134/86
[2017-03-15] MEDS: LISINOPRIL 10 MG TAB PO SCH (08:33)
[2017-03-15] MEDS ORDERED: DIVALPROEX 500 MG TAB PO SCH ×2 (09:00)
--- NOTE | 2017-03-15 11:35 | HPE ---
DATE OF ADMISSION: 03/14/2017 Please refer to the psychiatric history and evaluation for further details on this admission. This examination and history is intended for medical issues which may need treatment, followup or consultation on this 31-year-old male. PRIMARY CARE PROVIDER: Dr. Rubio at the CT. ALLERGIES: - PENICILLIN - SEAFOOD SOCIAL HISTORY: Lives in [place]. He is . He is disabled from the since 2007. ETOH - he drinks once or twice a month, two to three drinks. Illicit Drugs: Marijuana and cocaine. He has used ecstasy in the past. PAST MEDICAL HISTORY: 1. Bipolar disorder. 2. Anxiety. 3. Depression. 4. Post traumatic stress disorder (PTSD). 5. Chronic neck pain. 6. Degenerative disc disease. CT of cervical spine on 09/29/2016 showed mild multilevel degenerative disc disease, disc bulge C3-4, C-7, no central canal stenosis. 7. Asthma. 8. Hypertension. PAST SURGICAL HISTORY: Hernia repair as an infant. LABORATORY STUDIES: CBC normal. Electrolytes normal. BUN 6. Creatinine 1.05. Urine was positive for cocaine and cannabinoids. HOME MEDICATIONS: - albuterol HFA 2 puffs by mouth every 4 hours as needed for shortness of breath or wheeze - baclofen 10 mg by mouth three times a day - citalopram 40 mg by mouth at bedtime - Depakote 1000 mg by mouth at bedtime - Depakote 500 mg by mouth daily - lisinopril 10 mg by mouth daily - prazosin 2 mg by mouth at bedtime REVIEW OF SYSTEMS: Ten systems review was done. Other than chronic neck pain, he had no complaints. It was unremarkable. PHYSICAL EXAMINATION: 31-year-old cooperative male in no acute distress. Height 69 inches. Weight 81.82 kg. Body mass index (BMI) 26.6. Blood pressure 134/86. Pulse 69. Respirations 16. Temperature 98.7. The patient is alert and oriented times three. Pupils equal and reactive to light. Extraocular movements intact. Cornea and sclera clear. Conjunctiva normal. No facial asymmetry. Pharynx, tongue and gums pink and moist. Tongue is midline. Neck is supple, without lymphadenopathy. No thyromegaly. No goiter. Chest clear to auscultation, without wheeze or retraction. Heart is regular. Abdomen benign. Bowel sounds positive. Genitourinary ()/Rectal: Not done. Extremities show equal strength. Full range of motion. No cyanosis, clubbing or edema. Peripheral pulses equal and palpable bilaterally. Skin is warm and dry. IMPRESSION AND PLAN: 1. Psychiatric. Plan per psychiatry. 2. History of asthma. Continue albuterol HFA as needed as ordered. 3. Hypertension. Continue lisinopril. Currently clinically stable. 4. Chronic neck pain. [facility]. 5. No acute medical issues.
[2017-03-15 18:00] VITALS: BP 114/60
[2017-03-15] MEDS: QUEtiapine FUMARATE 50 MG TAB PO SCH (20:12)
[2017-03-15] MEDS: DIVALPROEX 500 MG TAB PO SCH (20:12)
[2017-03-15] MEDS: ACETAMINOPHEN TAB 650MG DOSE (2X325MG) PO PRN (20:13)
[2017-03-15] MEDS ORDERED: PRAZOSIN 1 MG CAP PO SCH (21:00)
--- NOTE | 2017-03-15 22:03 | MHHPE ---
DATE OF ADMISSION: 03/14/2017 DATE OF SERVICE: 03/15/2017 HISTORY OF PRESENT ILLNESS: This is one of multiple hospitalizations for this 31-year-old black man who was admitted after he was brought to the emergency room by a friend. He complained of feeling increasingly depressed for 3 months. He describes his mood as 7 out of 10, where the closest to 10 is the most depressed. He states that he is feeling hopeless and helpless. Concentration is down and so is his energy level. A few days prior to admission he said that he overdosed on 15 Flexeril pills, although he never received treatment at that time. He said that it was with suicidal intent. The patient has multiple stressors, particularly that his ex- has a soldier and will be [place] with his daughter and so he is going to be missing her. He has a lot of finance problems and has not been able to find a job. The patient has a diagnosis of bipolar disorder. He has had multiple psychiatric hospitalizations, last one in December 2016 when he was diagnosed with bipolar disorder type 2 and also unspecified anxiety disorder. He also used to see Dr. Hooks, a psychiatrist at [facility] as an outpatient at one point, who also diagnosed him with bipolar disorder. He gives a history of hypomanic episodes when he has increased irritability, increased energy, racing thoughts, increased goal directed activities. Currently, he is having depression, as I noted above. The patient also states that last September there was an incident where he was stopped by the police for a traffic violation and an argument ensued and says that ultimately the hotel operations manager was holding a gun up to his head. He describes that he had nightmares at the time about this incident and flashbacks. He was started on prazosin 2 mg at night at the time and what appears to be posttraumatic stress disorder (PTSD) symptoms. He does say that the nightmares are very rare now. He says for a while when he saw a police car he would have flashbacks and that has also stopped. He tends to be hypervigilant. Currently, the patient is on medications, including Depakote 700 mg in the morning and 1000 mg at night, Celexa 40 mg daily, and prazosin 2 mg at night. He has been on the same medications now for many years, but eventually he transferred from treatment with Dr. Hooks to the [facility] outpatient clinic and they pretty much just discontinued the same medications. He states that he probably has been feeling more depressed than now for about 2 to 3 years now. PAST PSYCHIATRIC HISTORY: The patient, as I said, has had numerous hospitalizations, the last one in December 2016, as I noted above. He does have a history of overdosing in the past. He says that he attempted to hang himself, although he never lost consciousness. FAMILY HISTORY: His mother had trouble with drug addictions. Father had trouble with alcohol abuse. There were no suicides in the family. ABUSE HISTORY: He denies any history of any physical or sexual abuse in the past. However, he says in the past the police had a gun to his head and he appears to have some PTSD symptoms at this time. SUBSTANCE ABUSE HISTORY: The patient has a positive toxicology and admits to using cocaine about once a week and cannabis four to five times a week. MEDICAL HISTORY: The patient has a history of hypertension and degenerative disc disease. REVIEW OF SYSTEMS: VITAL SIGNS: Blood pressure 134/86, pulse 59, respirations 16. APPEARANCE: The patient appears his stated age. The patient's gait is normal. There were no involuntary movements noted. All other systems were reviewed and found to be negative. MENTAL STATUS EXAMINATION: The patient is alert, oriented times three. Eye contact is fairly good. Psychomotor activity is decreased. He is verbally spontaneous. There is no formal thought disorder noted. He was very depressed. Affect is full range and appropriate. He says that he is not suicidal today, but admits that just a few days ago he was suicidal when he overdosed on the Flexeril. He is not homicidal. Concentration is fair. Memory intact. Insight and judgment fair. DIAGNOSES: 1. Bipolar disorder type 2. 2. Rule out posttraumatic stress disorder (PTSD). TREATMENT PLAN: At this point, the patient remains very depressed with suicidal attempt just a few days ago, so he remains a high risk to hurt himself. We will continue to monitor the patient for this and we will continue the current medications of Depakote 700 mg in the morning and 1000 mg at night, valproic acid level this morning was only 54. I will go ahead and increase the Depakote to 1000 mg twice a day and I will also add some Seroquel 50 mg at night to see if this helps the patient to sleep better and also helps with further stabilization of his mood. I will continue Celexa 40 mg daily, prazosin 2 mg at night. We will involve him in individual, group and milieu therapy and plan to discharge him with appropriate followup when stable.
[2017-03-16 07:13] VITALS: BP 126/72
[2017-03-16] MEDS: BACLOFEN 10 MG TAB PO SCH ×3 (08:48→21:50)
[2017-03-16] MEDS: DIVALPROEX 500 MG TAB PO SCH ×2 (08:49→21:50)
[2017-03-16] MEDS: LISINOPRIL 10 MG TAB PO SCH (08:49)
[2017-03-16] MEDS ORDERED: OLANZapine ORAL DISINTEGRATING TAB 5MG PO ONE (16:45)
[2017-03-16 18:00] VITALS: BP 124/73
--- NOTE | 2017-03-16 19:20 | MHIPN ---
DATE: 03/16/2017 The patient today states that he feels tired and I advised the patient that is understandable since I increased his Depakote since his level was low at about 54 and I also added Seroquel to see if that would help him sleep better. He continues to feel very depressed, but he says he is not suicidal at this point. MENTAL STATUS EXAMINATION: He is alert and oriented times three. He is pleasant and cooperative, verbally spontaneous. Eye contact is fair. He is not psychotic. His mood is depressed. Affect is full range and appropriate. There is no formal thought disorder noted. Concentration fair. Memory intact. Insight and judgment poor. DIAGNOSES: Bipolar disorder type 2. Rule out posttraumatic stress disorder (PTSD). TREATMENT PLAN: We will continue to titrate his medications as indicated and to monitor the patient for continued elevation and stabilization of his mood and continued resolution of suicidal ideations.
[2017-03-16] MEDS: PRAZOSIN 1 MG CAP PO SCH (21:49)
[2017-03-16] MEDS: QUEtiapine FUMARATE 50 MG TAB PO SCH (21:50)
[2017-03-16] MEDS: CitaloPRAM (CeleXA) 20 MG TAB PO SCH (21:50)
--- NOTE | 2017-03-17 06:03 | ECGEPIP ---
Stationary ECG Study [facility] - ED Test Date: 2017-03-14 Pat Name: ROBERT BARROW Department: Room: - Gender: M [employer]: : 1985 Requested By: GORDON LOPEZ Order Number: [id number] Reading MD: Leon Tavares Measurements Intervals [place] Rate: 73 P: 61 NH: 148 QRS: 39 QRSD: 94 T: 33 QT: 387 QTc: 429 Interpretive Statements SINUS RHYTHM SIMILAR TO 10/25/15 Electronically Signed On 03-17-2017 6:03:49 EDT by Leon Tavares
[2017-03-17 06:44] VITALS: BP 139/88
[2017-03-17] MEDS: BACLOFEN 10 MG TAB PO SCH ×3 (09:50→20:26)
[2017-03-17] MEDS: LISINOPRIL 10 MG TAB PO SCH (09:50)
[2017-03-17] MEDS: DIVALPROEX 500 MG TAB PO SCH ×2 (09:50→20:26)
[2017-03-17 18:00] VITALS: BP 127/65
--- NOTE | 2017-03-17 19:28 | MHIPN ---
DATE: 03/17/2017 31-year-old male admitted to our unit for depression. Patient reported feeling increasingly depressed for the last three months. Reports feeling hopeless and helpless with low energy and concentration. Patient reported an overdose on 15 tablets of Flexeril before admission. Also reported multiple stressors. He carries the diagnosis of bipolar disorder with many psychiatric hospitalizations, the last in December 2016. He gives a history of hypomanic episodes with increased irritability, increased energy, racing thoughts, but he reports that recently he has been feeling mostly depressed. Patient also reports using cocaine once a week and cannabis 4-5 times a week. Patient has a history of hypertension and degenerative joint disease (DJD). MEDICATIONS: - Seroquel 50 mg by mouth nightly - Depakote 1000 mg by mouth twice a day - Celexa 40 mg by mouth every morning - baclofen 10 mg by mouth three times a day - Minipress 2 mg by mouth nightly SUBJECTIVE: "I am feeling about the same." OBJECTIVE: The patient reports feeling depressed. Denies side effects from the medication. Patient is in bed with very little interaction with other patients and staff. Denies auditory or visual hallucinations or delusions. There is no evidence of any other psychotic symptoms. MENTAL STATUS EXAMINATION: Patient is dressed in [facility]. Patient is cooperative during exam. Has poor eye contact. His speech is slow and monotone. Mood is depressed and anxious. Affect is restricted. There is no evidence of delusions or hallucinations. Memory is fair. Patient is fully oriented. Associations are intact. Thinking is logical. Thought content is appropriate. Patient is able to contract for safety while in the hospital. Insight and judgment is limited. ASSESSMENT: 1. Bipolar disorder type 2 by history. 2. Cocaine and marijuana abuse. PLAN; 1. Continue with Seroquel 50 mg by mouth nightly. 2. Depakote 1000 mg by mouth twice a day. 3. Trazodone 50 mg by mouth nightly as needed for insomnia. 4. Celexa 40 mg by mouth nightly. 5. Minipress 2 mg by mouth nightly. 6. Continue medication management, individual and group therapy.
[2017-03-17] MEDS: QUEtiapine FUMARATE 50 MG TAB PO SCH (20:26)
[2017-03-17] MEDS: CitaloPRAM (CeleXA) 20 MG TAB PO SCH (20:26)
[2017-03-17] MEDS: PRAZOSIN 1 MG CAP PO SCH (20:26)
[2017-03-18 06:44] VITALS: BP 125/81
[2017-03-18] MEDS: DIVALPROEX 500 MG TAB PO SCH ×2 (08:14→21:08)
[2017-03-18] MEDS: LISINOPRIL 10 MG TAB PO SCH (08:14)
[2017-03-18] MEDS: BACLOFEN 10 MG TAB PO SCH ×3 (08:14→21:07)
[2017-03-18] MEDS: ACETAMINOPHEN TAB 650MG DOSE (2X325MG) PO PRN (08:16)
--- NOTE | 2017-03-18 16:31 | MHIPN ---
DATE: 03/18/2017 HISTORY: A 31-year-old male admitted for depression. He reported feeling hopeless and helpless with very low energy and concentration. He reported that he overdosed on 50 tablets of Flexeril before admission. MEDICATIONS: - Depakote 1000 mg by mouth twice a day - Celexa 40 mg by mouth every morning - Minipress 2 mg by mouth at bedtime - Seroquel 50 mg by mouth at bedtime SUBJECTIVE: "I'm feeling about the same." OBJECTIVE: No major changes. The patient continues to feel depressed. He stays most of the time isolated in the room. Denies side effect from the medication. Denies auditory or visual hallucination. No evidence of delusions. Insight and judgment is limited. MENTAL STATUS EXAMINATION: The patient is dressed in [facility]. He is cooperative during the examination. He has poor eye contact. Speech is slow and monotone. Mood is depressed and anxious. Affect is restricted. No evidence of delusions or hallucinations. Memory is fair. The patient is fully oriented. Associations are intact. Thinking is logical. Thought content is appropriate. The patient is able to contract for safety during the interview. Insight and judgment is limited. ASSESSMENT: 1. Bipolar disorder, type 2. 2. Cocaine and marijuana abuse. PLAN: 1. Continue with Seroquel 50 mg by mouth at bedtime. 2. Continue Depakote 1000 mg by mouth twice a day. 3. Continue trazodone 50 mg by mouth at bedtime as needed for insomnia. 4. Continue Celexa 40 mg by mouth at bedtime. 5. Continue Minipress 2 mg by mouth at bedtime. 6. Continue medication management, individual and group therapy.
[2017-03-18 18:35] VITALS: BP 138/89
[2017-03-18] MEDS: QUEtiapine FUMARATE 50 MG TAB PO SCH (21:07)
[2017-03-18] MEDS: CitaloPRAM (CeleXA) 20 MG TAB PO SCH (21:07)
[2017-03-18] MEDS: PRAZOSIN 1 MG CAP PO SCH (21:07)
[2017-03-18] MEDS: traZODone 50 MG TAB PO PRN (21:08)
[2017-03-19 06:29] VITALS: BP 125/70
[2017-03-19] MEDS: DIVALPROEX 500 MG TAB PO SCH ×2 (08:28→20:03)
[2017-03-19] MEDS: BACLOFEN 10 MG TAB PO SCH ×3 (08:29→20:03)
[2017-03-19] MEDS: LISINOPRIL 10 MG TAB PO SCH (08:29)
[2017-03-19] MEDS: ACETAMINOPHEN TAB 650MG DOSE (2X325MG) PO PRN (13:19)
--- NOTE | 2017-03-19 15:18 | MHIPN ---
DATE: 03/19/2017 31-year-old male admitted to our unit for depression. He reported feeling hopeless, helpless, low energy and concentration. He overdosed on Flexeril before admission. MEDICATIONS: - Depakote 1000 mg by mouth twice a day - Celexa 40 mg by mouth in the morning - Minipres 20 mg by mouth at night - Seroquel 50 mg by mouth at night SUBJECTIVE: "I am feeling a little better." OBJECTIVE: The patient is improving slowly. Does not appear as depressed, although he continues having psychomotor retardation, sad and restricted facial expression. The patient denies psychotic symptoms. Denies auditory or visual hallucinations or delusions. The patient denies side effects from the medication. Insight and judgment are limited. MENTAL STATUS EXAMINATION: The patient is dressed in [facility]. The patient has poor eye contact. Speech is slow and monotone. Mood is depressed and anxious. Affect is restricted. There is no evidence of delusions or hallucinations. Memory is fair. The patient is fully oriented. Associations are intact. Thinking is logical. Thought content is appropriate. The patient is able to contract for safety during the interview. Insight and judgment are limited. ASSESSMENT: 1. Bipolar disorder type 2. 2. Cocaine and marijuana dependency. PLAN: 1. Continue with Seroquel 50 mg by mouth at night 2. Continue with Depakote 1000 mg by mouth twice a day 3. Continue with trazodone 50 mg by mouth at night as needed for insomnia. 4. Continue Celexa 40 mg by mouth at night. 5. Continue Minipres 2 mg by mouth at night. 6. Continue medication management, individual and group therapy.
[2017-03-19 18:18] VITALS: BP 130/86
[2017-03-19] MEDS: QUEtiapine FUMARATE 50 MG TAB PO SCH (20:02)
[2017-03-19] MEDS: traZODone 50 MG TAB PO PRN (20:02)
[2017-03-19] MEDS: PRAZOSIN 1 MG CAP PO SCH (20:03)
[2017-03-19] MEDS: CitaloPRAM (CeleXA) 20 MG TAB PO SCH (20:03)
[2017-03-20 06:00] VITALS: BP 142/70
[2017-03-20] MEDS: DIVALPROEX 500 MG TAB PO SCH ×2 (08:54→20:27)
[2017-03-20] MEDS: LISINOPRIL 10 MG TAB PO SCH (08:54)
[2017-03-20] MEDS: BACLOFEN 10 MG TAB PO SCH ×3 (08:54→20:28)
[2017-03-20] MEDS: ACETAMINOPHEN TAB 650MG DOSE (2X325MG) PO PRN (15:43)
--- NOTE | 2017-03-20 15:47 | MHIPN ---
DATE: 03/20/2017 31-year-old male admitted to our unit for depression and overdose on Flexeril before admission. He reported feeling hopeless, helpless, low energy and concentration. MEDICATIONS: - Depakote 1000 mg by mouth twice a day - Celexa 40 mg by mouth every morning - Minipress 20 mg by mouth nightly - Seroquel 50 mg by mouth nightly SUBJECTIVE: "I am improving." OBJECTIVE: Patient is improving slowly. Patient does not have psychomotor retardation, is interacting better with other patients and staff. Patient appears to be motivated for an inpatient rehabilitation program. He denies auditory or visual hallucinations or delusions. Patient is able to contract for safety during the interview. Insight and judgment is improving. MENTAL STATUS EXAMINATION: Patient is dressed in [facility]. Patient has fair eye contact. Speech is slow and monotone. Mood is depressed and anxious but improving. Affect is not as restricted as yesterday. No evidence of delusions or hallucinations. Memory, attention, and concentration are fair. The patient is able to contract for safety during the interview. Insight and judgment is poor as far as his chemical dependency. ASSESSMENT: 1. Bipolar disorder. 2. Cocaine and marijuana dependency. PLAN: 1. Continue with Seroquel 50 mg by mouth nightly. 2. Continue with Depakote 1000 mg by mouth twice a day. 3. Continue trazodone 50 mg by mouth nightly as needed for insomnia. 4. Continue Celexa 40 mg by mouth nightly. 5. Continue Minipress 2 mg by mouth nightly. 6. Continue medication management, individual and group therapy. 7. Will get a valproic level and complete metabolic panel (CMP) in morning.
[2017-03-20 18:00] VITALS: BP 138/91
[2017-03-20] MEDS: CitaloPRAM (CeleXA) 20 MG TAB PO SCH (20:27)
[2017-03-20] MEDS: QUEtiapine FUMARATE 50 MG TAB PO SCH (20:27)
[2017-03-20] MEDS: PRAZOSIN 1 MG CAP PO SCH (20:28)
[2017-03-20] MEDS: traZODone 50 MG TAB PO PRN (22:16)
[2017-03-21 07:00] VITALS: BP 120/69
[2017-03-21 07:36] LABS: ALBUMIN 3.1 GM/DL (3.2-5.2); ALBUMIN/GLOBULIN RATIO 1.29 (1.00-1.93); ALKALINE PHOSPHATASE 40 U/L (45-117); ALT/SGPT 20 U/L (12-78); ANION GAP 6 MEQ/L (8-16); AST/SGOT 8 U/L (15-37); BILIRUBIN,TOTAL 0.1 MG/DL (0.2-1.0); BLOOD UREA NITROGEN 5 MG/DL (7-18); CALCIUM LEVEL 8.4 MG/DL (8.5-10.1); CARBON DIOXIDE LEVEL 29 MEQ/L (21-32); CHLORIDE LEVEL 109 MEQ/L (98-107); CREATININE FOR GFR 0.92 MG/DL (0.70-1.30); GLOMERULAR FILTRATION RATE > 60.0 (>60); GLUCOSE, FASTING 91 MG/DL (70-105); SODIUM LEVEL 144 MEQ/L (136-145); TOTAL PROTEIN 5.5 GM/DL (6.4-8.2)
[2017-03-21] MEDS: BACLOFEN 10 MG TAB PO SCH ×3 (08:51→21:20)
[2017-03-21] MEDS: DIVALPROEX 500 MG TAB PO SCH ×2 (08:52→21:20)
[2017-03-21] MEDS: LISINOPRIL 10 MG TAB PO SCH (08:52)
--- NOTE | 2017-03-21 16:01 | MHIPN ---
DATE OF SERVICE: 03/21/2017 31-year-old male admitted to our unit for depression and overdose of Flexeril. Patient reported feeling hopeless, helpless, low energy and suicidal thoughts. MEDICATIONS: - Depakote 1000 mg by mouth twice a day - Celexa 40 mg by mouth every morning - Minipress 20 mg by mouth nightly - Seroquel 50 mg by mouth nightly SUBJECTIVE: "I am feeling a little better". OBJECTIVE: Patient continues to improve slowly. Patient continues depressed, but is motivated for treatment. He is compliant with the medication. Interacts with other patients better. Able to contract for safety during the interview. Insight and judgment is improving. MENTAL STATUS EXAMINATION: Patient is dressed in [facility]. Patient has fair eye contact. Speech is slow and monotone. Mood is depressed and anxious but improving. Affect is close to normal. No evidence of delusions or hallucinations. Memory, attention, and concentration are fair. The patient is able to contract for safety. Insight and judgment is improving. ASSESSMENT: 1. Bipolar disorder. 2. Cocaine and marijuana dependency. PLAN: 1. Increase Depakote to 750 mg by mouth a.m. and 1000 mg by mouth at bedtime. 2. Continue with Seroquel 50 mg by mouth nightly. 3. Continue trazodone 50 mg by mouth nightly as needed for insomnia. 4. Continue Celexa 40 mg by mouth nightly. 5. Continue Minipress 2 mg by mouth nightly. 6. Continue medication management, individual and group therapy.
[2017-03-21 18:00] VITALS: BP 138/86
[2017-03-21] MEDS: QUEtiapine FUMARATE 50 MG TAB PO SCH (21:20)
[2017-03-21] MEDS: CitaloPRAM (CeleXA) 20 MG TAB PO SCH (21:20)
[2017-03-21] MEDS: PRAZOSIN 1 MG CAP PO SCH (21:22)
[2017-03-21] MEDS: traZODone 50 MG TAB PO PRN (21:22)
[2017-03-22 07:08] VITALS: BP 139/82
[2017-03-22] MEDS: LISINOPRIL 10 MG TAB PO SCH (09:31)
[2017-03-22] MEDS: BACLOFEN 10 MG TAB PO SCH ×3 (09:31→21:22)
[2017-03-22] MEDS: DIVALPROEX 250 MG TAB PO SCH (09:31)
[2017-03-22] MEDS: ACETAMINOPHEN TAB 650MG DOSE (2X325MG) PO PRN (12:02)
[2017-03-22 18:24] VITALS: BP 135/81
[2017-03-22] MEDS: CitaloPRAM (CeleXA) 20 MG TAB PO SCH (21:22)
[2017-03-22] MEDS: PRAZOSIN 1 MG CAP PO SCH (21:22)
[2017-03-22] MEDS: DIVALPROEX 500 MG TAB PO SCH (21:22)
[2017-03-22] MEDS: QUEtiapine FUMARATE 50 MG TAB PO SCH (21:23)
[2017-03-23 06:00] VITALS: BP 137/87
[2017-03-23] MEDS: BACLOFEN 10 MG TAB PO SCH ×3 (09:00→21:01)
[2017-03-23] MEDS: DIVALPROEX 250 MG TAB PO SCH (09:00)
[2017-03-23] MEDS: LISINOPRIL 10 MG TAB PO SCH (09:00)
[2017-03-23 18:00] VITALS: BP 134/90
[2017-03-23] MEDS: ACETAMINOPHEN TAB 650MG DOSE (2X325MG) PO PRN (19:34)
[2017-03-23] MEDS: CitaloPRAM (CeleXA) 20 MG TAB PO SCH (21:00)
[2017-03-23] MEDS: DIVALPROEX 500 MG TAB PO SCH (21:01)
[2017-03-23] MEDS: PRAZOSIN 1 MG CAP PO SCH (21:01)
[2017-03-23] MEDS: QUEtiapine FUMARATE 50 MG TAB PO SCH (21:01)
[2017-03-23] MEDS: traZODone 50 MG TAB PO PRN (21:01)
[2017-03-24 06:33] VITALS: BP 107/55
[2017-03-24] MEDS: BACLOFEN 10 MG TAB PO SCH ×3 (08:52→21:12)
[2017-03-24] MEDS: DIVALPROEX 250 MG TAB PO SCH (08:52)
[2017-03-24] MEDS: LISINOPRIL 10 MG TAB PO SCH (08:52)
--- NOTE | 2017-03-24 15:30 | IPN ---
DATE: 03/24/2017 31-year-old male admitted to our unit for depression and overdose of Flexeril. The patient reported feeling hopeless, helpless, having low energy and suicidal thoughts. MEDICATIONS: - Depakote 750 mg by mouth in the morning and 1000 mg by mouth at night - Celexa 40 mg by mouth in the morning - Minipres 20 mg by mouth at night - Seroquel 50 mg by mouth at night SUBJECTIVE: "I am feeling a little better." OBJECTIVE: The patient continues to improve. The patient appears to be motivated to followup for chemical dependency treatment in an inpatient unit. He is denying side effects from the medications. He is able to contract for safety during the interview and while in the hospital. Insight and judgment is limited as far as his chemical dependency. MENTAL STATUS EXAMINATION: The patient is dressed in [facility]. Has fair eye contact. Speech is slow and monotone. Mood is depressed and anxious, continues to improve. Affect is congruent with mood. No evidence of delusions or hallucinations. Memory, attention, concentration are fair. The patient is able to contract for safety during the interview. Insight and judgment is improving. ASSESSMENT: 1. Bipolar disorder. 2. Cocaine and marijuana dependency. PLAN: 1. Continue with Depakote 750 mg by mouth in the morning and 1000 mg at night. 2. Continue Seroquel 50 mg by mouth at night. 3. Continue trazodone 50 mg by mouth at night as needed for insomnia. 4. Continue Celexa 40 mg by mouth at night. 5. Continue Minipres 2 mg by mouth at night. 6. Continue medication management, individual and group therapy.
[2017-03-24 18:00] VITALS: BP 120/80
[2017-03-24] MEDS: MAALOX 30 ML SUSP *UDC PO PRN (21:12)
[2017-03-24] MEDS: CitaloPRAM (CeleXA) 20 MG TAB PO SCH (21:12)
[2017-03-24] MEDS: QUEtiapine FUMARATE 50 MG TAB PO SCH (21:12)
[2017-03-24] MEDS: DIVALPROEX 500 MG TAB PO SCH (21:12)
[2017-03-24] MEDS: PRAZOSIN 1 MG CAP PO SCH (21:13)
[2017-03-25 07:03] VITALS: BP 127/79
[2017-03-25] MEDS: DIVALPROEX 250 MG TAB PO SCH (08:41)
[2017-03-25] MEDS: BACLOFEN 10 MG TAB PO SCH ×3 (08:41→21:34)
[2017-03-25] MEDS: LISINOPRIL 10 MG TAB PO SCH (08:41)
--- NOTE | 2017-03-25 15:35 | IPN ---
DATE: 03/25/2017 A 31-year-old male admitted to our unit for depression and overdose of Flexeril. The patient reported feeling hopeless, helpless, low energy, and suicidal thoughts. MEDICATIONS: - Depakote 750 mg by mouth every morning and 1000 mg by mouth at bedtime - Celexa 40 mg by mouth every morning - Minipress 2 mg by mouth at bedtime - Seroquel 50 mg by mouth at bedtime SUBJECTIVE: "I am feeling better." OBJECTIVE: The patient continues improving slowly. The patient is motivated to follow an inpatient chemical dependency program. He reports better mood. Denies side effect from the medication. He is able to contract for safety during the interview. Insight and judgment is fair. MENTAL STATUS EXAMINATION: The patient is dressed in [facility]. The patient has good eye contact. Speech is slow and monotone. Mood is depressed and anxious but improved from admission. Affect is congruent with mood. No delusions or hallucinations. Memory, attention and concentration are fair. The patient is able to contract for safety during the interview. Insight and judgment is fair. ASSESSMENT: 1. Bipolar disorder. 2. Cocaine and marijuana dependency. PLAN: 1. Continue Depakote 750 mg by mouth every morning and 1000 mg by mouth at bedtime. 2. Continue Seroquel 50 mg by mouth at bedtime. 3. Continue trazodone 50 mg as needed for insomnia. 4. Continue Celexa 40 mg by mouth at bedtime. 5. Continue Minipress 2 mg by mouth at bedtime. 6. Continue medication management, individual and group therapy.
[2017-03-25 18:00] VITALS: BP 139/86
[2017-03-25] MEDS: traZODone 50 MG TAB PO PRN (21:33)
[2017-03-25] MEDS: CitaloPRAM (CeleXA) 20 MG TAB PO SCH (21:33)
[2017-03-25] MEDS: QUEtiapine FUMARATE 50 MG TAB PO SCH (21:33)
[2017-03-25] MEDS: PRAZOSIN 1 MG CAP PO SCH (21:34)
[2017-03-25] MEDS: DIVALPROEX 500 MG TAB PO SCH (21:34)
[2017-03-26 06:51] VITALS: BP 126/66
[2017-03-26] MEDS: LISINOPRIL 10 MG TAB PO SCH (08:24)
[2017-03-26] MEDS: BACLOFEN 10 MG TAB PO SCH ×3 (08:24→20:33)
[2017-03-26] MEDS: DIVALPROEX 250 MG TAB PO SCH (08:24)
[2017-03-26] MEDS ORDERED: QUET5TAB PO (15:33)
[2017-03-26] MEDS ORDERED: DEPA250T32 PO (15:33)
[2017-03-26] MEDS ORDERED: DEPA1TAB3 PO (15:33)
[2017-03-26] MEDS: MAALOX 30 ML SUSP *UDC PO PRN (15:48)
[2017-03-26] MEDS ORDERED: IBUPROFEN 800 MG TAB PO ONE (16:00)
[2017-03-26 18:00] VITALS: BP 135/66
--- NOTE | 2017-03-26 18:46 | IPN ---
DATE: 03/26/2017 31-year-old male admitted to our unit for depression and overdose of Flexeril. The patient reported feeling hopeless and helpless with low energy and suicidal thoughts. MEDICATIONS: - Depakote 750 mg by mouth every morning and 1000 mg by mouth at bedtime - Celexa 40 mg by mouth every morning - Minipress 2 mg by mouth at bedtime - Seroquel 50 mg by mouth at bedtime SUBJECTIVE: "I feel ready". OBJECTIVE: The patient has improved significantly from admission. The patient is motivated to continue his treatment to an inpatient chemical dependency program. A bed has become available for tomorrow. He reports better mood. Denies side effects from the medication. Contracts for safety. Denies suicidal or homicidal ideation. Insight and judgment is fair. MENTAL STATUS EXAM: The patient is dressed in [facility]. Has fair eye contact. Speech is normal in tone, volume, articulation. He is coherent and is spontaneous. Mood is slightly depressed but significantly improved from admission. Affect is congruent with mood. No delusions or hallucinations. Memory, attention and concentration are fair. The patient denies suicidal or homicidal ideation. Insight and judgment is fair. ASSESSMENT: 1. Bipolar disorder. 2. Cocaine and marijuana dependency. PLAN: 1. Continue Depakote 750 mg by mouth morning and 1000 mg by mouth at bedtime. 2. Seroquel 50 mg by mouth at bedtime 3. Trazodone 50 mg by mouth at bedtime as needed for insomnia. 4. Celexa 40 mg by mouth at bedtime 5. Minipress 2 mg by mouth at bedtime 6. The patient will be discharged tomorrow to be transferred to an inpatient chemical dependency facility.
[2017-03-26] MEDS: DIVALPROEX 500 MG TAB PO SCH (20:33)
[2017-03-26 20:34] VITALS: BP 120/84
[2017-03-26] MEDS: CitaloPRAM (CeleXA) 20 MG TAB PO SCH (20:34)
[2017-03-26] MEDS: QUEtiapine FUMARATE 50 MG TAB PO SCH (20:34)
[2017-03-26] MEDS: PRAZOSIN 1 MG CAP PO SCH (20:34)
[2017-03-28] MEDS ORDERED: INFLUENZA QUADRIVALENT PF VACCINE 0.5ML SYRINGE (90686) IM ONE (09:00)
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
== END 2017-03-27 05:57 | DRG 885 ==
LOC: M ED 14:34 → M ED INP 23:25 → M PSY 03-15 00:44
PROVIDERS: ADMIT Psychiatry & Neurology Psychiatry; ATTEND Psychiatry & Neurology Psychiatry
DX: F31.81 Bipolar II disorder (principal); F14.20 Cocaine dependence, uncomplicated; F43.10 Post-traumatic stress disorder, unspecified; J45.909 Unspecified asthma, uncomplicated; F41.9 Anxiety disorder, unspecified; I10 Essential (primary) hypertension; M50.21 Other cervical disc displacement, high cervical region; M50.223 Other cervical disc displacement at C6-C7 level; F12.20 Cannabis dependence, uncomplicated; Z81.1 Family history of alcohol abuse and dependence; Z91.5 Personal history of self-harm; Z81.3 Family history of other psychoactive substance abuse and dependence; Z79.899 Other long term (current) drug therapy

== ENCOUNTER 2017-06-04 14:21 | Emergency (ER) | payer OTHER ==
[2017-06-04 16:00] LABS: HEMATOCRIT 40.5 % (42.0-52.0); HEMOGLOBIN 13.7 g/dl (14.0-18.0); MEAN CORPUSCULAR HEMOGLOBIN 30.2 pg (27.0-33.0); MEAN CORPUSCULAR HGB CONC 33.8 g/dl (32.0-36.5); MEAN CORPUSCULAR VOLUME 89.2 fl (80.0-96.0); PLATELET COUNT, AUTOMATED 251 10^3/uL (150-450); RED BLOOD COUNT 4.54 10^6/uL (4.30-6.10); RED CELL DISTRIBUTION WIDTH 12.9 % (11.5-14.5); WHITE BLOOD COUNT 4.4 10^3/uL (4.0-10.0)
[2017-06-04 16:31] LABS: AMPHETAMINES LEVEL URINE NEGATIVE (NEGATIVE); BARBITURATES URINE NEGATIVE (NEGATIVE); BENZODIAZEPINES URINE NEGATIVE (NEGATIVE); CANNABINOIDS URINE NEGATIVE (NEGATIVE); COCAINE METABOLITE URINE NEGATIVE (NEGATIVE); METHADONE URINE NEGATIVE (NEGATIVE); OPIATES URINE NEGATIVE (NEGATIVE); PHENCYCLIDINE URINE NEGATIVE (NEGATIVE)
[2017-06-04 16:44] LABS: ALBUMIN 4.7 GM/DL (3.2-5.2); ALBUMIN/GLOBULIN RATIO 1.81 (1.00-1.93); ALKALINE PHOSPHATASE 40 U/L (45-117); ALT/SGPT 74 U/L (12-78); ANION GAP 6 MEQ/L (8-16); AST/SGOT 93 U/L (7-37); BILIRUBIN,DIRECT 0.1 MG/DL (0.0-0.2); BILIRUBIN,TOTAL 0.3 MG/DL (0.2-1.0); BLOOD UREA NITROGEN 13 MG/DL (7-18); CALCIUM LEVEL 8.4 MG/DL (8.5-10.1); CARBON DIOXIDE LEVEL 31 MEQ/L (21-32); CHLORIDE LEVEL 104 MEQ/L (98-107); CREATININE FOR GFR 0.98 MG/DL (0.70-1.30); ETHYL ALCOHOL (ETHANOL) < 0.003 % (0.000-0.010); GLOMERULAR FILTRATION RATE > 60.0 (>60); GLUCOSE, FASTING 91 MG/DL (70-105); POTASSIUM SERUM 3.7 MEQ/L (3.5-5.1); SALICYLATE LEVEL < 1.7 MG/DL (5.0-30.0); SODIUM LEVEL 141 MEQ/L (136-145); THYROID STIMULATING HORMONE 0.877 uIU/ML (0.358-3.740); TOTAL PROTEIN 7.3 GM/DL (6.4-8.2); VALPROIC ACID (DEPAKOTE) 79.4 UG/ML (50.0-100.0)
[2017-06-04 16:45] LABS: ACETAMINOPHEN LEVEL < 2.0 UG/ML (10.0-30.0)
== END 2017-06-05 08:03 | disposition short-term general hospital (02) ==
LOC: M ED 06-05 08:03
DX: F31.9 Bipolar disorder, unspecified (principal); I10 Essential (primary) hypertension; M54.9 Dorsalgia, unspecified; G89.29 Other chronic pain; F17.210 Nicotine dependence, cigarettes, uncomplicated; F14.90 Cocaine use, unspecified, uncomplicated; F15.90 Other stimulant use, unspecified, uncomplicated; F12.90 Cannabis use, unspecified, uncomplicated; Z79.899 Other long term (current) drug therapy; Z88.0 Allergy status to penicillin; Z91.013 Allergy to seafood; Z91.030 Bee allergy status
CPT/HCPCS: 93005

== ENCOUNTER 2018-07-17 21:39 | Emergency (ER) | payer OTHER ==
[~2018-07-17] VITALS: Ht 175.3 cm; Wt 93.2 kg
[2018-07-17 21:39] VITALS: BP 173/122
[~2018-07-17 21:39] MED LIST changes: +DEPA250T32 PO; +GABA-843 PO; +LISI-538 PO; +LISI10TA4 PO; +NAPR-855 PO; +PRAZ1CAP PO; -PROP1TAB29 PO; +PROP20TA72 PO; +QUET5TAB PO; -TRAZ-136 PO; +TRAZ-160 PO; +TRAZ-163 PO; -TRAZ50TA11 PO; +VENTAER INH
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
== END 2018-07-17 23:14 | disposition home or self-care (01) ==
LOC: M ED 21:39
DX: S00.03XA Contusion of scalp, initial encounter (principal); Y04.2XXA Assault by strike against or bumped into by another person, initial encounter; Y92.019 Unspecified place in single-family (private) house as the place of occurrence of the external cause